=== PATIENT | female | born 1980 | race Hispanic/Latino ===

== ENCOUNTER 2018-01-26 07:26 | Inpatient (IN) | payer MEDICAID ==
[2018-01-26] MEDS ORDERED: LACTATED RINGERS 500 ML IV ONE (07:28)
[2018-01-26] MEDS ORDERED: BRETHINE SUB-Q NR (07:49)
[2018-01-26] MEDS ORDERED: ePHEDrine SULFATE IV PRN (08:04)
[2018-01-26] MEDS ORDERED: XYLOCAINE 2% INFILTRATI ONE (08:04)
[2018-01-26] MEDS ORDERED: SUBLIMAZE IV PRN (08:04)
[2018-01-26] MEDS ORDERED: ZOFRAN IV PRN (08:04)
[2018-01-26] MEDS ORDERED: MINERAL OIL PO PRN (08:04)
[2018-01-26] MEDS ORDERED: POLYCILLIN/NS 2 GM/100 ML 2 GM/100 ML BAG IV ONE (08:04)
[2018-01-26] MEDS ORDERED: MAGNESIUM SULFATE 4GM/100ML 4 GM/100 ML BAG IV ONE (08:08)
--- NOTE | 2018-01-26 08:14 | History and Physical Report ---
History of Present Illness Date of examination: 01/26/18 Chief complaint: labor @ 33+6 weeks, PROM clear @ 0630 this AM History of present illness: EDC Confirmation: 03/10/2018 # 1 Delivery date: 04/12/2007 Weeks Gestation: 39 Delivery type: forceps Hours of labor: 30 Anesthesia type: epidural Delivery location: [facility] Infant Sex: Female weight: 6'9 Name: Kristy Past Medical History: Reviewed history from 02/02/2017 and no changes required: one outbreak a year--doubt this hx, never had an outbreak Asthma Past Surgical History: Reviewed history from 11/14/2013 and no changes required: sinus surgery Breast Augmentation: (2005) Tonsillectomy Past Medical History Social Hx: Patient is single 5 to 6 cigs/day Infection History Hx of STD: hsv Partner hx. of genital herpes: yes Rash, Viral, or Febrile illness since last LMP? yes Varicella/Chicken Pox Status: Previous Disease Genetic History ADVANCED MATERNAL AGE Congenital Heart Defect: Mom: no Dad: no Remberto Disease: Mom: no Dad: no Thalassemia Mom: no Dad: no Neural Tube Defect Mom: no Dad: no Down's Syndrome Mom: no Dad: no Bahman-Sachs Mom: no Dad: no Sickle Cell Disease/Trait Mom: no Dad: no Hemophilia Mom: no Dad: no Muscular Dystrophy Mom: no Dad: no Cystic Fibrosis Mom: no Dad: no Chester Chorea Mom: no Dad: no Mental Retardation Mom: no Dad: no Fragile X Mom: no Dad: no Other Genetic/Chromosomal Disorder Mom: no Dad: no Child w/other defect Mom: no Dad: no Enviromental Exposures Xray Exposure: no Medication, drug, or alcohol use since LMP: no Chemical/Other Exposure: yes Exposure to Cat Liter: no Hx of Parvovirus (Fifth Disease): no Comments: tobacco use Active Medications (reviewed today): VITAMIN C TABS () Current Allergies (reviewed today): VICODIN (Critical) Past History Past Medical History: other (see HPI) Past Surgical History: other (see HPI) 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 (see HPI) Family/Genetic History: other (see HPI) - Obstetrical History Expected Date of Delivery: 03/10/18 Actual Gestation: 33 Week(s) 6 Day(s) : 3 Para: 1 Hx # Term Pregnancies: 1 Number of Pregnancies: 0 Spontaneous Abortions: 1 Induced : 0 Number of Living Children: 1 Medications and Allergies Allergies Allergy/AdvReac Type Severity Reaction Status Date / Time acetaminophen [From Vicodin] Allergy Tachycardia Verified 03/23/14 12:09 ,Numbness hydrocodone bitartrate Allergy Tachycardia Verified 03/23/14 12:09 [From Vicodin] ,Numbness Home Medications Medication Instructions Recorded Confirmed Last Taken Type Albuterol Sulfate [Ventolin HFA] 2 puff IH PRN PRN 03/15/14 03/23/14 Unknown History Acetaminophen/Codeine [Tylenol 1 tab PO Q4HR PRN #30 tablet 03/21/14 03/23/14 Rx /Codeine # 3 tab] Active Meds: Active Medications Betamethasone Acet/Betameth SodPhos (Celestone Soluspan) 12 mg IM Q24HR ATIYA Stop: 01/27/18 10:01 Ephedrine Sulfate (Ephedrine Sulfate) 10 mg IV Q2M PRN PRN Reason: Hypotension Fentanyl (Sublimaze) 100 mcg IV Q2H PRN PRN Reason: Labor Pain Ampicillin Sodium (Polycillin/Ns 2 Gm/100 Ml) 2 gm in 100 mls @ 100 mls/hr IV ONCE ONE; Protocol Stop: 01/26/18 09:03 Ampicillin Sodium (Ampicillin/Ns 1 Gm/50 Ml) 1 gm in 50 mls @ 100 mls/hr IV Q4HR ATIYA; Protocol Magnesium Sulfate (Magnesium Sulfate 40gm/1000ml) 40 gm in 1,000 mls @ 50 mls/ hr IV DIRECT ATIYA Magnesium Sulfate (Magnesium Sulfate 4gm/100ml) 4 gm in 100 mls @ 300 mls/hr IV ONCE ONE Stop: 01/26/18 08:27 Parenteral Electrolytes (Normosol-R Ph 7.4) 1,000 mls @ 125 mls/hr IV DIRECT ATIYA Oxytocin/Sodium Chloride (Pitocin/Ns 20 Unit/1000ml Drip) 20 units in 1,000 mls @ 125 mls/hr IV DIRECT ATIYA Lidocaine (Xylocaine 2%) 20 ml INFILTRATI ONCE ONE Stop: 01/26/18 08:05 Mineral Oil (Mineral Oil) 30 ml PO QHS PRN PRN Reason: Constipation Multivitamins/Iron/Calcium ( Vitamin) 1 each PO QDAY ATIYA Ondansetron HCl (Zofran) 4 mg IV Q8H PRN PRN Reason: Nausea And Vomiting Terbutaline Sulfate (Brethine) 0.25 mg SUB-Q ONCE NR Stop: 01/26/18 10:00 Review of Systems All systems: negative - Vital Signs Vital signs: Vital Signs Temp Resp 98.4 F 16 01/26/18 07:53 01/26/18 07:53 Temp Pulse Resp BP Pulse Ox 98.4 F 81 16 100 01/26/18 07:53 01/26/18 08:10 01/26/18 07:53 01/26/18 08:10 - Physical Exam Breasts: Positive: normal Cardiovascular: Regular rate Lungs: Positive: Clear to auscultation, Normal air movement Abdomen: Positive: normal appearance Genitourinary (Female): Positive: normal external genitalia, normal perenium Vulva: both: normal Vagina: Positive: normal moisture Uterus: Positive: normal size, normal contour Anus/Rectum: Positive: normal perianal skin Extremities: Positive: normal Deep Tendon Reflex Grade: Normal +2 - Obstetrical FHR: auscultation normal, category 2 Uterine Contraction Monitor Mode: External Cervical Dilatation: 4 (SROM - clear) Cervical Effacement Percentage: 100 station: 0 Uterine Contraction Frequency (min): 1-2 Uterine Contraction Duration: 60 Uterine Contraction Pattern: Regular Uterine Tone Measurement Phase: Contraction Uterine Contraction Intensity: Moderate Results All other labs normal. Patient: PEPITO PRICE ID: [id number] Note: All result statuses are Final unless otherwise noted. Tests: (1) Profile I ([id number]) Order Note: Clinical Information: SRC:UR HBsAg Screen Negative Negative *1 Rubella Antibodies, IgG 3.84 index Immune >0.99 *2 Non-immune <0.90 Equivocal 0.90 - 0.99 Immune >0.99 ABO Grouping O *3 Rh Factor Positive *4 Please note: Prior records for this patient's ABO / Rh type are not available for additional verification. Antibody Screen Negative Negative *5 RPR Non Reactive Non Reactive *6 WBC 9.5 x10E3/uL 3.4-10.8 *7 RBC 4.36 x10E6/uL 3.77-5.28 *8 Hemoglobin 14.4 g/dL 11.1-15.9 *9 Hematocrit 42.8 % 34.0-46.6 *10 MCV [H] 98 fL 79-97 *11 MCH 33.0 pg 26.6-33.0 *12 MCHC 33.6 g/dL 31.5-35.7 *13 RDW 12.7 % 12.3-15.4 *14 Platelets 238 x10E3/uL 150-379 *15 Neutrophils 71 % *16 Lymphs 17 % *17 Monocytes 10 % *18 Eos 2 % *19 Basos 0 % *20 ! Immature Cells <No Reported Value> *21 Neutrophils (Absolute) 6.7 x10E3/uL 1.4-7.0 *22 Lymphs (Absolute) 1.6 x10E3/uL 0.7-3.1 *23 Monocytes(Absolute) 0.9 x10E3/uL 0.1-0.9 *24 Eos (Absolute) 0.2 x10E3/uL 0.0-0.4 *25 Baso (Absolute) 0.0 x10E3/uL 0.0-0.2 *26 ! Immature Granulocytes 0 % *27 ! Immature Grans (Abs) 0.0 x10E3/uL 0.0-0.1 *28 ! NRBC <No Reported Value> *29 Hematology Comments: <No Reported Value> *30 Tests: (2) Cystic Fibrosis Profile ([id number]) ! CF, Screen Comment: *31 RESULTS: Negative for 32 mutations analyzed INTERPRETATION: This individual is negative for the mutations analyzed. This negative result may need further interpretation depending on the clinical indication. This result reduces but does not eliminate the risk to be a CF carrier. COMMENTS: The detection rate varies with ethnicity and is listed below. The presence of an undetected mutation in the CF gene cannot be ruled out. In the absence of family history, the remaining risk that a person with a negative result could have at least one CF mutation is listed in the table. If there is a family history of CF, these risk figures do not apply. As detailed information regarding this individual's family history would permit a more accurate assessment of this individual's risk to be a carrier of cystic fibrosis, please contact [facility] at for a revised report. Mutation Detection Detection rates are based on mutation Rates among Ethnic frequencies in patients affected with Groups cystic fibrosis. Among individuals with an atypical or mild presentation (e.g. congenital absence of the vas deferens, pancreatitis) detection rates may vary from those provided here: Carrier risk reduction when no family history Detection Ethnicity Rate Ashkenazi 12/11 to 97% Baptism 12/10 to 90% (non-) -Nauruan to 69% 46 to 73% to 55% This interpretation is based on the clinical and family relationship information provided and the current understanding of the molecular genetics of this condition. MUTATIONS ANALYZED: G85E V520F Z8139A 2183AA to G R117H G542X C9559P 2184delA R334W S549N 394delTT 2789+5G to A R347H S549R 621+1G to T 3120+1G to A R347P G551D 711+1G to T 3659delC A455E R553X 1078delT 3849+10kbC to T [id number] R560T 1717-1G to A 3876delA [id number] I1765K 1898+1G to A 3905insT METHODS/LIMITATIONS: DNA is isolated from the sample and tested for the 32 CF mutations on the [employer] Array Platform ([employer]). Regions of the CFTR gene are amplified enzymatically and subjected to a solution-phase multiplex allele-specific primer extension with subsequent hybridization to a bead array and fluorescence detection. Polymorphisms F508C, I506V and I507V are included in this panel to rule out false positive astmuM284 homozygotes. Reflex testing of 5T is included in the panel for R117H interpretation. False positive or negative results may occur for reasons that include genetic variants, blood transfusions, bone marrow transplantation, erroneous representation of family relationships or contamination of a sample with maternal cells. REFERENCES: 1. Updates on Carrier Screening for Cystic Fibrosis. (2011) Am J Ob Gynecol 117(4):6337-9755 2. Arvin et al. (2004) Alla Med 6:387-91 3. Lara et al. (2002) Alla Med 4:379-391 4. Preconception and carrier screening for cystic fibrosis: (2001)ACOG.ACMG publication Results Released By: Darius Medina M.D., [employer] Report Released By: Kleber MansfieldD., [employer] ! Comment: SPRCS *32 The assay provides information intended to be used for carrier screening in adults of reproductive age, as an aid in screening, and as a confirmatory test for another medically established diagnosis in newborns and children. The test is not indicated for use in diagnostic testing, pre-implantation screening, or for any stand-alone diagnostic purposes without confirmation by another medically established diagnostic product or procedure. Tests: (3) HB Solu + Rflx Frac ([id number]) Hemoglobin (Hgb) Solubility Negative Negative *33 Tests: (4) HCV Ab w/Rflx to Verification ([id number]) ! HCV Ab <0.1 s/co ratio 0.0-0.9 *34 Tests: (5) Comment: ([id number]) ! Comment: SPRCS *35 Non reactive HCV antibody screen is consistent with no HCV infection, unless recent infection is suspected or other evidence exists to indicate HCV infection. Tests: (6) Urine Culture, Routine ([id number]) Urine Culture, Routine Final report *36 Tests: (7) Result ([id number]) ! Result 1 No growth *37 Assessment and Plan 37 y/o @ 33+6 weeks, arrived to triage with gross rupture of membranes, clear fluid and regular ctx. SVE 4/100/0, vertex. GBS unknown. She appears to be in active labor. Dr. Sherwood consulted, will start mag sulfate for neuro protection and steroids. Admission orders in EMR, anticipate . NICU to be notified by L&D staff. - Patient Problems (1) 33 weeks gestation of Current Visit: Yes Status: Acute (2) GBS screening not performed Current Visit: Yes Status: Acute (3) premature rupture of membranes (PPROM) with onset of labor within 24 hours of rupture in first trimester, antepartum Onset Date: 01/26/18 Current Visit: Yes Status: Acute Plan to address problem: PROM @ 0630
[2018-01-26 08:50] LABS: Hematocrit 37.8 % (30.3-42.9); Hemoglobin 13.1 gm/dl (10.1-14.3); Mean Corpuscular HGB Conc 35 % (30-34); Mean Corpuscular Hemoglobin 32 pg (28-32); Mean Corpuscular Volume 93 fl (79-97); Platelet Count 219 K/mm3 (140-440); Red Blood Count 4.07 M/mm3 (3.65-5.03); Red Cell Distribution Width 13.1 % (13.2-15.2)
[2018-01-26] MEDS ORDERED: NORMOSOL-R PH 7.4 1,000 ML IV SCH (09:00)
[2018-01-26] MEDS ORDERED: MAGNESIUM SULFATE 40GM/1000ML 40 GM/1,000 ML BAG IV SCH (09:00)
[2018-01-26] MEDS ORDERED: NARCAN 2 MG/2 ML ONE (09:06)
[2018-01-26] MEDS: PITOCin/NS 20 UNIT/1000ML DRIP 20 UNITS/1,000 ML BAG IV SCH ×2 (09:40→11:41)
--- NOTE | 2018-01-26 09:51 | Procedure Note ---
OB Delivery Note - Delivery Date of Delivery: 01/26/18 ( baby boy) Surgeon: DAVID SPRINGER Spine Surgeon: DANTE BAUER Estimated blood loss: 300cc - Vaginal Delivery presentation: vertex Delivery position: OA Intrapartum events: labor-<37 weeks, PROM->1hr before delivery, precipitous labor- <3hr, mult. 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 true knot noted in cord. Placenta del intact and complete, no lacerations to repair. infant's wt 4#8oz, apgars 7/9, taken to NICU. EBL 300. mother remains LDR stable. Dr. Springer present for delivery. - A at 1 minute: 7 at 5 minutes: 9 Gender: Male (4#8)
[2018-01-26] MEDS ORDERED: CELESTONE SOLUSPAN IM SCH (10:00)
[2018-01-26] MEDS ORDERED: PRENATAL VITAMIN PO SCH (10:00)
[2018-01-26] MEDS ORDERED: SODIUM CHLORIDE FLUSH SYRINGE 10 ML IV NR (11:46)
[2018-01-26] MEDS ORDERED: TYLENOL PO PRN (11:46)
[2018-01-26] MEDS ORDERED: TUCKS PAD TP PRN (11:46)
[2018-01-26] MEDS ORDERED: PHENERGAN PO PRN (11:46)
[2018-01-26] MEDS ORDERED: PITOCin/NS 20 UNIT/1000ML DRIP 20 UNITS/1,000 ML BAG IV SCH (11:46)
[2018-01-26] MEDS ORDERED: BENADRYL PO PRN (11:46)
[2018-01-26] MEDS ORDERED: DULCOLAX PR PRN (11:46)
[2018-01-26] MEDS ORDERED: LANSINOH TP PRN (11:46)
[2018-01-26] MEDS ORDERED: DERMOPLAST TP PRN (11:46)
[2018-01-26] MEDS ORDERED: MILK OF MAGNESIA PO PRN (11:46)
[2018-01-26] MEDS ORDERED: AMPICILLIN/NS 1 GM/50 ML 1 GM/50 ML BAG IV SCH (12:05)
[2018-01-26] MEDS: MOTRIN PO SCH ×2 (12:30→18:00)
[2018-01-26 22:01] LABS: Hematocrit 35.2 % (30.3-42.9); Hemoglobin 12.1 gm/dl (10.1-14.3)
[2018-01-26] MEDS: COLACE PO SCH (22:16)
--- NOTE | 2018-01-27 06:12 | Discharge Summary ---
Providers - Providers Date of Admission: 01/26/18 08:50 Date of discharge: 01/28/18 (pt w/o complaint States baby boy is doing well in NICU) Attending physician: RAYNE NEIL 01/26/18 11:46 Consult to Block Cutter [CONS] Routine Reason For Exam: assistance with , SNS Primary care physician: RAYNE NEIL Hospitalization Reason for admission: IUP - , labor, rupture of membranes Delivery: Episiotomy: none Laceration: none Incision: normal Other procedures: none complications: none Discharge diagnosis: delivery baby: male Hospital course: pt presented to Triage with PPROM @ 33 weeks in labor. Proceded to have an uncomplicated vaginal delivery. Male infant to NICU stable. Pt w/o complaint VSS FF below umb Lochia scant perineum intact. H&H No s/ sx of anemia. Doing well s/p vag delivery P: d/c instructions given Will d/c in AM Pt aware she will be going before her son is d/c. Instructions for scheduling circumcision given. Undecided @ . Condition at discharge: Good Disposition: DC-01 TO HOME OR SELFCARE - Discharge Diagnoses (1) delivery, delivered Status: Acute Comment: RTO in 4 weeks for PP care Plan - Provider Discharge Summary Activity: routine, no sex for 6 weeks, no heavy lifting 4 weeks, no strenuous exercise Diet: routine Instructions: routine Additional instructions: [] Smoking cessation referral if applicable(refer to patient education folder for contact #) [] Refer to [facility] Booklet Call your doctor immediately for: * Fever > 100.5 * Heavy vaginal bleeding ( >1 pad per hour) * Severe persistent headache * Shortness of breath * Reddened, hot, painful area to leg or breast * Drainage or odor from incision. * Keep incision clean and dry at all times and follow doctor's instructions regarding bathing/showering - Follow up plan Follow up: RAYNE NEIL MD [Primary Care Provider] - 03/01/18 (Congratulations! Please call [phone] to schedule your appointment in 4 weeks. When your son is discharged call the office to schedule his circumcision. Bring the EMLA cream with you to his visit. Do NOT use it at home. Take medications as prescribed. Call with any concerns.)
[2018-01-27] MEDS ORDERED: BOOSTRIX IM ONE (09:51)
[2018-01-27] MEDS: COLACE PO SCH (10:31)
[2018-01-27] MEDS: MOTRIN PO SCH ×2 (11:00→18:17)
[2018-01-28] MEDS: MOTRIN PO SCH ×2 (03:13→06:52)
--- NOTE | 2018-01-28 07:35 | Event Note ---
Date: 01/28/18 (pt again voicing no concerns "Need to go home to the other kids ") Pt pumping and going to NICU often. VSS FF below umb Lochia scant P: d/c today RTO 4 weeks.
[2018-01-28 10:46] VITALS: BP 98/65
== END 2018-01-28 10:45 | disposition home or self-care (01) | DRG 775 ==
LOC: TRG 07:26 → LD 08:50 → OB 11:54
PROVIDERS: ADMIT Obstetrics & Gynecology; ATTEND Obstetrics & Gynecology
PROC: 10E0XZZ Delivery of Products of Conception, External Approach (ICD-10-PCS; principal; 2018-01-26)
PROC: 3E0234Z Introduction of Serum, Toxoid and Vaccine into Muscle, Percutaneous Approach (ICD-10-PCS; 2018-01-27)
DX: O42.013 Preterm premature rupture of membranes, onset of labor within 24 hours of rupture, third trimester (principal); O99.52 Diseases of the respiratory system complicating childbirth; O76 Abnormality in fetal heart rate and rhythm complicating labor and delivery; O62.3 Precipitate labor; O69.2XX0 Labor and delivery complicated by other cord entanglement, with compression, not applicable or unspecified; J45.909 Unspecified asthma, uncomplicated; Z3A.33 33 weeks gestation of pregnancy; Z37.0 Single live birth; Z90.89 Acquired absence of other organs; Z88.5 Allergy status to narcotic agent; Z88.8 Allergy status to other drugs, medicaments and biological substances; Z23 Encounter for immunization
CPT/HCPCS: 36415; 85014; 85018; 85027; 86592; 86850; 86900; 86901; 87806; 88307; 99211; A6250; G0463; J0290; J0702; J2310; J2590; J3010; J3475